=== PATIENT | female | born 1960 | race Caucasian/White ===

== ENCOUNTER 2021-08-05 06:55 | Outpatient (CLI) | payer MEDICAID ==
[~2021-08-05] VITALS: Ht 149.9 cm; Wt 51.3 kg
[~2021-08-05 06:55] MED LIST: ALBU6.7H9 INH; BECL7.3A INH; ESTR1TAB19 PO; HYOS0.1277 SL; LEVO50TA8 PO; METO50TA7 PO; PROM25TA14 PO
[2021-08-05 07:47] LABS: TOTAL HEMOGLOBIN 16.2 G/dl (12.0-16.0)
[2021-08-05] MEDS ORDERED: albuterol 2.5 MG/3 ML nebule NEB PRN (08:20)
== END 2021-08-05 23:59 | disposition home or self-care (01) ==
LOC: RT 06:55
PROVIDERS: ATTEND Internal Medicine Cardiovascular Disease
DX: R94.2 Abnormal results of pulmonary function studies (principal); R06.02 Shortness of breath
CPT/HCPCS: 85018; 94010; 94727; 94729

== ENCOUNTER 2024-06-03 12:36 | Outpatient (CLI) | payer MEDICAID ==
[~2024-06-03 12:36] MED LIST changes: +ALBU6.7H14 INH; -ALBU6.7H9 INH
== END 2024-06-03 23:59 | disposition home or self-care (01) ==
LOC: MRI 12:36
PROVIDERS: ATTEND Physician Assistant
DX: M75.101 Unspecified rotator cuff tear or rupture of right shoulder, not specified as traumatic (principal); M75.81 Other shoulder lesions, right shoulder; M25.511 Pain in right shoulder; M89.311 Hypertrophy of bone, right shoulder; M75.51 Bursitis of right shoulder
CPT/HCPCS: 73221